=== PATIENT | female | born 1955 | race Caucasian/White ===

== ENCOUNTER 2018-12-13 12:07 | Emergency (ER) | payer OTHER ==
[~2018-12-13] VITALS: Ht 170.2 cm; Wt 99.8 kg
[2018-12-13 12:20] VITALS: BP_SYST 145
--- NOTE | 2018-12-13 13:37 | NUR ---
Patient to ER bed 03 for evaluation. Side rails up.
--- NOTE | 2018-12-13 13:40 | NUR ---
Pt c/o R knee pain and weakness unable to bear full weight.
--- NOTE | 2018-12-13 13:50 | NUR ---
ER at bedside examining patient.
--- NOTE | 2018-12-13 15:30 | NUR ---
Knee immobilizer applied.Crutches given.
[2018-12-13] MEDS ORDERED: HYDROcodone/ACETAMIN 5-325 MG TAB (NORCO/ VICODIN) PO ONE (16:00)
--- NOTE | 2018-12-13 16:50 | NUR ---
Pt medicated tolertaed well.
[2018-12-13 17:00] VITALS: BP_SYST 150
--- NOTE | 2018-12-13 17:00 | NUR ---
Patient given written and verbal discharge instructions and verbalizes understanding. ER MD discussed with patient the results and treatment provided. Patient in stable condition. ID arm band removed. NO Rx given. Patient educated on pain management and to follow up with PMD. Pain Scale 3. Opportunity for questions provided and answered. Medication side effect fact sheet provided.
== END 2018-12-13 17:00 | disposition home or self-care (01) ==
LOC: SED 12:07
DX: S83.91XA Sprain of unspecified site of right knee, initial encounter (principal); R03.0 Elevated blood-pressure reading, without diagnosis of hypertension; X58.XXXA Exposure to other specified factors, initial encounter; Y93.89 Activity, other specified; Y92.89 Other specified places as the place of occurrence of the external cause; Y99.8 Other external cause status
CPT/HCPCS: 93971; 99284